=== PATIENT | female | born 1990 | race African-American/Black ===

== ENCOUNTER 2021-11-12 16:31 | Outpatient (REF) | payer OTHER, SELFPAY ==
--- NOTE | 2021-11-12 15:45 | PAPFT_PTH ---
PATIENT: Michael Hdz LOC: N U#:[id number] AGE/SX: 31/F ROOM: RE11/12/[address]: Sondra Mckinnon MD, DC : 1990 BED: DIS: 11/12/2021 SPEC #: [id number] RECD: 11/12/21 18:34 STATUS: PRETTY REQ #: [id number] DEAN: 11/12/21 15:[address]: Sondra Mckinnon DEPT: [facility] Cytology RECD BY: Diamond Pan Tissues: 1 - CX/ENDOCX FOR PAP SMEARS Procedures: PAP THIN PREP/UVM Screening Comments: [id number]
== END 2021-11-12 16:32 | disposition home or self-care (01) ==
LOC: LBN 16:31
PROVIDERS: PCP Family Medicine; Visit Provider Family Medicine
DX: Z12.4 Encounter for screening for malignant neoplasm of cervix (principal)
CPT/HCPCS: 88142

== ENCOUNTER 2022-07-29 01:55 | Outpatient (CLI) | payer OTHER, SELFPAY ==
[2022-07-29 16:26] LABS: Kit/Specimen SENT
[2022-07-29 16:35] LABS: Abs Immature Grans 0.03 10^3/uL (0.0-0.06); Absolute Basophil Count 0.02 10^3/uL (0.0-0.2); Absolute Eosinophil Count 0.09 10^3/uL (0.0-0.7); Absolute Lymphocyte Count 2.58 10^3/uL (1.2-3.4); Absolute Monocyte Count 0.71 10^3/uL (0.1-0.8); Absolute Neutrophil Count 5.35 10^3/uL (1.2-6.7); Basophils % 0.2; HCT 32.9 % (36.0-46.0); HGB 11.4 g/dL (11.2-15.7); Immature Grans % 0.3; Lymphocytes % 29.4; MCH 32.4 pg (27.0-33.0); MCHC 34.7 % (32.0-36.0); MCV 94 fL (80-95); MPV 9.6 fL (8.0-11.0); Monocytes % 8.1; Nucleated RBC 0.2 % (0.0-0.3); Platelet Count 263 10^3/uL (130-400); RBC 3.52 10^6/uL (3.93-5.22); RDW 11.7 % (11.7-14.6); RDW-SD 39.9 fL; WBC 8.78 10^3/uL (4.4-10.8)
[2022-07-29 19:55] LABS: Tricyclic Antidepressants Negative (Negative)
[2022-07-29 19:56] LABS: *AMPHETAMINES SCREEN URINE Negative (Negative); *BARBITURATES SCREEN URINE Negative (Negative); *BENZODIAZEPINES SCREEN URINE Negative (Negative); Cannabinoids THC Negative (Negative); Cocaine Screen,Urine Negative (Negative); METHADONE URINE SCREEN Negative (Negative); OPIATES URINE SCREEN Negative (Negative)
[2022-07-31 09:14] LABS: Hepatitis B Surface Ag Negative (Negative)
[2022-07-31 09:56] LABS: HIV-1/2 Ag & Ab Screen Negative (Negative)
[2022-07-31 10:11] LABS: Hepatitis C Ab w Rflx HCV PCR Negative (Negative)
[2022-07-31 10:18] LABS: Rubella IgG Ab (UVM) Positive (See Note)
[2022-07-31 12:20] LABS: Varicella IgG Antibody Equivocal (See Note)
[2022-07-31 15:16] LABS: Chlamydia Result Negative (Negative); GC Result Negative (Negative)
[2022-08-01 13:41] LABS: Syphilis IgG w/Reflex Nonreactive (Nonreactive)
[2022-08-05 10:32] LABS: Buprenorphine Negative ng/mL (Cutoff: 5.0); Norbuprenorphine Negative ng/mL (Cutoff: 2.5)
== END 2022-07-29 01:56 | disposition home or self-care (01) ==
LOC: LBO 01:55
PROVIDERS: PCP Family Medicine; Visit Provider Advanced Practice Midwife
DX: Z34.01 Encounter for supervision of normal first pregnancy, first trimester (principal); Z3A.00 Weeks of gestation of pregnancy not specified
CPT/HCPCS: 80307; 80348; 86787; 86803; 86850; 86900; 86901; 87340; 87389; 87491; 87591; 85025; 86762; 86780; 87086; 87480; 87510; 87660

== ENCOUNTER 2022-08-26 03:13 | Outpatient (CLI) | payer OTHER, SELFPAY ==
[2022-08-29 12:25] LABS: AFP 50.7 ng/mL; Calculated age at EDD 30 years; Cigarette smoking status non-Smoker; GA used in risk estimate Dates estimate; IVF Pregnancy No; Initial or repeat testing Initial testing; Insulin dependent diabetes No; Maternal Weight 136 lbs; Number of Fetuses 1; Physician Phone Number 802-748-7300; Prev Pregnancy w/NTD No; RECOMMENDED FOLLOW UP None.; Results Summary Normal risk
[2022-09-02 09:42] LABS: Specimen WB Whole Blood
[2022-09-29 13:42] LABS: Result Summary NEGATIVE; Specimen WB Whole Blood
== END 2022-08-26 03:14 | disposition home or self-care (01) ==
LOC: LBO 03:13
PROVIDERS: Obstetrics & Gynecology; PCP Family Medicine; Visit Provider Advanced Practice Midwife
DX: Z34.92 Encounter for supervision of normal pregnancy, unspecified, second trimester (principal); Z3A.00 Weeks of gestation of pregnancy not specified
CPT/HCPCS: 36415; 81220; 81222; 81329; 82105

== ENCOUNTER 2022-11-25 03:12 | Outpatient (CLI) | payer OTHER, SELFPAY ==
[2022-11-25 10:37] LABS: HCT 29.9 % (36.0-46.0); HGB 10.1 g/dL (11.2-15.7); MCHC 33.8 % (32.0-36.0); MCV 98 fL (80-95); MPV 9.1 fL (8.0-11.0); Platelet Count 291 10^3/uL (130-400); RBC 3.06 10^6/uL (3.93-5.22); RDW 12.5 % (11.7-14.6); RDW-SD 44.4 fL; WBC 11.31 10^3/uL (4.4-10.8)
[2022-11-25 10:50] LABS: Glucose,1 Hr (Glucola) 152 mg/dL (80-140)
== END 2022-11-25 03:13 | disposition home or self-care (01) ==
LOC: LBO 03:12
PROVIDERS: Advanced Practice Midwife; PCP Family Medicine; Visit Provider Advanced Practice Midwife
DX: Z34.93 Encounter for supervision of normal pregnancy, unspecified, third trimester (principal); Z3A.28 28 weeks gestation of pregnancy
CPT/HCPCS: 36415; 82950; 85027

== ENCOUNTER 2022-12-09 02:26 | Outpatient (CLI) | payer OTHER, SELFPAY ==
[2022-12-09 09:10] LABS: Glucose 1 Hour 176 mg/dL
[2022-12-09 11:10] LABS: Glucose 3 Hour 127 mg/dL
== END 2022-12-09 02:27 | disposition home or self-care (01) ==
LOC: LBO 02:27
PROVIDERS: Advanced Practice Midwife; PCP Family Medicine; Visit Provider Advanced Practice Midwife
DX: Z34.93 Encounter for supervision of normal pregnancy, unspecified, third trimester (principal)
CPT/HCPCS: 36415; 82951

== ENCOUNTER 2023-01-09 00:50 | Outpatient (CLI) | payer OTHER, SELFPAY ==
--- NOTE | 2023-01-09 06:45 | DI.US_ITS ---
Exam(s) US OB RICKY WEIGHT EXAM: US OB RICKY WEIGHT CLINICAL HISTORY: growth, position and fluid,Z34.90. TECHNIQUE: Transabdominal obstetrical ultrasound performed. COMPARISON: US US OB 2-3 TRIMESTER from 09/29/2022 FINDINGS: Number of fetuses: 1 position: CEPHALIC Placental location: There is a grade 2 posterior placenta. No evidence of previa. BIOMETRIC DATA: BPD: 9.01cm, 36weeks 3days HC: 32.68cm, 37weeks 1day AC: 32.83cm, 36weeks 5days FL: 7.06cm, 36weeks 1day EFW: 2,985.05g, 6lb 9.56oz, 90.2% Composite Age: 36weeks 4days JEFFERSON: 02/02/2023 Heart Rate: 134bpm Amniotic fluid index: 15.4cm. Visually, amount of fluid is within normal limits. IMPRESSION: 1. Single live intrauterine gestation as above. 2. Estimated weight is 2985gms. This is the 90th percentile. 3. Amniotic fluid index is 15.4 cm. Visually within normal limits. DATA REPOSITORY:
== END 2023-01-09 01:10 ==
LOC: DI 00:50
PROVIDERS: PCP Family Medicine; Visit Provider Advanced Practice Midwife
DX: Z34.93 Encounter for supervision of normal pregnancy, unspecified, third trimester (principal); Z3A.36 36 weeks gestation of pregnancy
CPT/HCPCS: 76816

== ENCOUNTER 2023-01-16 10:11 | Outpatient (REF) | payer OTHER, SELFPAY | END 2023-01-16 10:12 | disposition home or self-care (01) | LOC: LBN 10:11 | PROVIDERS: PCP Family Medicine; Visit Provider Advanced Practice Midwife | DX: Z34.93 Encounter for supervision of normal pregnancy, unspecified, third trimester (principal); Z36.85 Encounter for antenatal screening for Streptococcus B; Z3A.36 36 weeks gestation of pregnancy | CPT/HCPCS: 87081 ==

== ENCOUNTER 2023-02-10 01:20 | Inpatient (IN) | payer OTHER, SELFPAY ==
[2023-02-10] VITALS (60 sets, daily range): BP systolic 110–130; BP diastolic 8–92; PULSE 62–103; RESP 16–18; TEMP 36.5–36.9; O2SAT 97–99; BMI 29.8
[2023-02-10 01:47] LABS: HCT 40.3 % (36.0-46.0); HGB 13.7 g/dL (11.2-15.7); MCH 33.7 pg (27.0-33.0); MCV 99 fL (80-95); MPV 9.2 fL (8.0-11.0); Platelet Count 310 10^3/uL (130-400); RBC 4.06 10^6/uL (3.93-5.22); RDW-SD 44.3 fL; WBC 7.93 10^3/uL (4.4-10.8)
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
[2023-02-10 02:52] LABS: Source Nasal/Nares
[2023-02-10 03:23] LABS: COVID-19 PCR Negative (Negative)
[2023-02-10] MEDS: Lactated Ringers 500 ML IV ×2 (08:07→16:20)
--- NOTE | 2023-02-10 09:55 | PGE_ITS ---
Date of service: 02/10/23 Time of Service: 09:55 Pelvic Exam Dilation: 0.5 Effacement (%): 50 station: -3 Position: FOZIA Cervix Position: posterior Consistency: medium Vaginal Exam Presentation: Cephalic Comments: After attempt was made to stretch the cervix, the cervix was noted to be thicker than initally assessed to be at 50%. Contractions Monitor Mode: External Contraction Frequency(min): every 6-7 Contraction Duration(sec): 60 Intensity: Moderate Fetus A Monitor: External (US) Heart Rate Baseline: 140 Presentation: Vertex Variability: Minimal (1-5 BPM) Categories: Category I FHR Rhythm: Regular Accelerations: 15 X 15 Decelerations: None Amniotic Membrane Status: Intact Assessment Note: heart rate showed moderate variability at 0300. When she awoke from her sleep the variability was minimal and an IV bolus of 500 cc was administered. At 0800 Dr Hernandez was consulted regarding the heart rate pattern. Assessment and Plan Assessment and plan (1) Prolonged latent phase of labor: Status: Acute Assessment and plan: Bedside US and BPP performed by Dr. Hernandez for BPP 03/31. Per consult with Dr Emigdio platt, augmentation of labor recommended. Lawuo requested to take a shower and ambulate. Will start cervidil for cervical ripening and anticipate . Continuous monitoring with Novii. Objective Abnormal lab results 02/10/23 Range/Units 01:40 MCV 99 H (80-95) fL MCH 33.7 H (27.0-33.0) pg Temp Pulse Resp BP 98.4 F 86 18 117/79 02/10/23 07:33 02/10/23 07:33 02/10/23 07:33 02/10/23 07:33 Laboratory Results WBC 7.93 10^3/uL (4.4-10.8) 02/10/23 01:40 RBC 4.06 10^6/uL (3.93-5.22) 02/10/23 01:40 Hgb 13.7 g/dL (11.2-15.7) 02/10/23 01:40 Hct 40.3 % (36.0-46.0) 02/10/23 01:40 MCV 99 fL (80-95) H 02/10/23 01:40 MCH 33.7 pg (27.0-33.0) H 02/10/23 01:40 MCHC 34.0 % (32.0-36.0) 02/10/23 01:40 RDW 12.0 % (11.7-14.6) 02/10/23 01:40 Plt Count 310 10^3/uL (130-400) 02/10/23 01:40 MPV 9.2 fL (8.0-11.0) 02/10/23 01:40 COVID-19 Source Nasal/Nares 02/10/23 02:40 SARS-CoV-2 (PCR) Negative (Negative) 02/10/23 02:40 Patient ABO/Rh A Positive 02/10/23 01:40 Antibody Screen NEGATIVE 02/10/23 01:40 Subjective Interval history since last seen: Michael's contractions slowed and she fell asleep for 3-4 hours. She awoke and continues to have contractions every 7 minutes which are moderate strength. Results Hemoglobin/Hematocrit: Hgb 13.7 g/dL (11.2-15.7) 02/10/23 01:40 Hct 40.3 % (36.0-46.0) 02/10/23 01:40 Abnormal Lab Findings: Abnormal Labs 02/10/23 01:40 MCV 99 H MCH 33.7 H
--- NOTE | 2023-02-10 10:40 | W.PM.OBNL1 ---
Date of service: 02/10/23 Time of Service: 10:41 Contractions Monitor Mode: External Contraction Frequency(min): every 2- 6 minutes Contraction Duration(sec): 50-60 Intensity: Moderate Fetus A Monitor: External (US) Heart Rate Baseline: 135 Presentation: Cephalic Variability: Moderate (6-25 BPM) Categories: Category I Accelerations: 15 X 15 Decelerations: None Assessment Note: The novii was placed and there was a period of minimal variability. The baby was moving and the heart rate is now 135 with average variability. Assessment and Plan Assessment and plan (1) Prolonged latent phase of labor: Status: Acute Assessment and plan: Cervidil was held and at this time, will plan to administer low dose pitocin per protocol. Ambulation was encouraged for comfort. Anticipate . Objective Abnormal lab results 02/10/23 Range/Units 01:40 MCV 99 H (80-95) fL MCH 33.7 H (27.0-33.0) pg Temp Pulse Resp BP 98.4 F 83 18 125/89 02/10/23 07:33 02/10/23 10:17 02/10/23 07:33 02/10/23 10:17 Laboratory Results WBC 7.93 10^3/uL (4.4-10.8) 02/10/23 01:40 RBC 4.06 10^6/uL (3.93-5.22) 02/10/23 01:40 Hgb 13.7 g/dL (11.2-15.7) 02/10/23 01:40 Hct 40.3 % (36.0-46.0) 02/10/23 01:40 MCV 99 fL (80-95) H 02/10/23 01:40 MCH 33.7 pg (27.0-33.0) H 02/10/23 01:40 MCHC 34.0 % (32.0-36.0) 02/10/23 01:40 RDW 12.0 % (11.7-14.6) 02/10/23 01:40 Plt Count 310 10^3/uL (130-400) 02/10/23 01:40 MPV 9.2 fL (8.0-11.0) 02/10/23 01:40 COVID-19 Source Nasal/Nares 02/10/23 02:40 SARS-CoV-2 (PCR) Negative (Negative) 02/10/23 02:40 Patient ABO/Rh A Positive 02/10/23 01:40 Antibody Screen NEGATIVE 02/10/23 01:40 Subjective Interval history since last seen: Contractions increased in frequency after shower and cervical exam. Lawuo reported that they are getting stronger. Results Hemoglobin/Hematocrit: Hgb 13.7 g/dL (11.2-15.7) 02/10/23 01:40 Hct 40.3 % (36.0-46.0) 02/10/23 01:40 Abnormal Lab Findings: Abnormal Labs 02/10/23 01:40 MCV 99 H MCH 33.7 H
[2023-02-10] MEDS: Lactated Ringers 1,000 ML 125 ML IV (10:55)
[2023-02-10] MEDS: Oxytocin/Normal Saline 30 UNIT/500 ML BAG 2 UNITS IV (10:56)
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
--- NOTE | 2023-02-10 15:21 | W.PM.OBNL1 ---
Date of service: 02/10/23 Time of Service: 15:46 Informed Consent Informed Consent: Augmentation of Labor and Regional Anesthesia Pelvic Exam Comments: 2 cms/80% and -2 at 1400. Exam deferred until after epidural. Contractions Monitor Mode: External Contraction Frequency(min): every 2-4 min Contraction Duration(sec): 60 Intensity: Strong Fetus A Monitor: External (US) Heart Rate Baseline: 130 Presentation: Vertex Variability: Moderate (6-25 BPM) Categories: Category I Accelerations: 15 X 15 Decelerations: None Assessment Note: occasional periods of minimal variability Assessment and Plan Assessment and plan (1) Prolonged latent phase of labor: Status: Acute Assessment and plan: will continue pitocin augmentation and reassess for labor progress after epidural. Dr gilbert visited [facility] while she wa sin the tub Objective Abnormal lab results 02/10/23 Range/Units 01:40 MCV 99 H (80-95) fL MCH 33.7 H (27.0-33.0) pg Temp Pulse Resp BP 97.9 F 83 18 128/71 02/10/23 12:26 02/10/23 14:10 02/10/23 07:33 02/10/23 12:25 Laboratory Results WBC 7.93 10^3/uL (4.4-10.8) 02/10/23 01:40 RBC 4.06 10^6/uL (3.93-5.22) 02/10/23 01:40 Hgb 13.7 g/dL (11.2-15.7) 02/10/23 01:40 Hct 40.3 % (36.0-46.0) 02/10/23 01:40 MCV 99 fL (80-95) H 02/10/23 01:40 MCH 33.7 pg (27.0-33.0) H 02/10/23 01:40 MCHC 34.0 % (32.0-36.0) 02/10/23 01:40 RDW 12.0 % (11.7-14.6) 02/10/23 01:40 Plt Count 310 10^3/uL (130-400) 02/10/23 01:40 MPV 9.2 fL (8.0-11.0) 02/10/23 01:40 COVID-19 Source Nasal/Nares 02/10/23 02:40 SARS-CoV-2 (PCR) Negative (Negative) 02/10/23 02:40 Patient ABO/Rh A Positive 02/10/23 01:40 Antibody Screen NEGATIVE 02/10/23 01:40 Subjective Interval history since last seen: Michael has used the tub and nitrous oxide for pain. She complains of fatigue and pain and requests an epidural. Justin London CRNA is present to perform the procedure. Michael is coping well with the labor with the support of her partner Saravanan and jovana Armstrong. Pitocin is infusing at 8 mu/min. Results Hemoglobin/Hematocrit: Hgb 13.7 g/dL (11.2-15.7) 02/10/23 01:40 Hct 40.3 % (36.0-46.0) 02/10/23 01:40 Abnormal Lab Findings: Abnormal Labs 02/10/23 01:40 MCV 99 H MCH 33.7 H
[2023-02-10] MEDS: FentaNYL/ROPIvacaine 2 mcg/ml and 0.1% 200 ML CADD Cassette EP (16:00)
--- NOTE | 2023-02-10 16:13 | W.ANESNEU ---
Epidural/Spinal Catheter Date Performed: 02/10/23 Procedure Start: 15:45 Procedure Stop: 16:14 Requesting Provider: Carine Kang Procedure Location: Obstetrics Reason Performed: Labor Epidural Standard Monitors Applied: Blood Pressure, SpO2 and See EMR for corresponding vital signs Patient Position: Sitting Sedation Given (Indicate Dose Given): No Sedation given Patient Mental Status: Awake Sterility: Hand Hygiene, Surgical Cap, Surgical Mask, Sterile Gloves, Sterile Drape/Sheet and Chlorhexidine Procedure Location: L3-L4 Interspace Epidural Needle: Tuohy 18 Gauge Needle Length: 3.5 Inch Needle Approach: Midline Epidural Procedure: Skin Prepped, Sterile Drape Placed, 1% Lidocaine to skin and subcutaneous tissue with 25G needle, Tuohy Needle placed, SANTHOSH to Saline Used, Epidural Catheter Placed, Negative Heme, Negative CSF Flow and Tuohy Needle Removed Catheter Placed?: Catheter Placed Test Dose (Indicate Dose Given): 3ml 1.5% Lidocaine with 1:200K Epinephrine Given and Negative Test Dose Loss of Resistance Depth (cm): 4 Catheter depth at skin (cm): 11 Dressing: Sorbaview Dressing Placed, Mastisol Used and Dressing reinforced with Tape Epidural Provider Bolus (Indicate Dose Given): Total bolus dose given in 3-5 ml divided doses and Total Ropivacaine 0.1% with Fentanyl 2mcg/ml Given from pump. (ml) Dose:: 10ml Additives (Indicate Dose Given ): None Infusion Medication: Medication Infusion Began Medication Infusion: Ropivacaine 0.1% with Fentanyl 2mcg/ml Maintenance Infusion Rate (ml/hour): 10 PCEA Bolus Dose (ml): 5 Block Level: N/A Paresthesia: None Ultrasound: Not Used Number of Attempts (See previous attempts in note section): 1 Procedure Tolerated: No Complications and Patient tolerated well Procedure Outcome: Successful Procedure Comment:: SANTHOSH to saline was not impressive, catheter threaded without difficulty. Negative test dose, responded well with comfort to bolus, good motor . Catheter secured and PCEA education given. Performed By: Justin London
--- NOTE | 2023-02-10 16:25 | W.ANESPRE ---
General Info Date of Service Date Performed: 02/10/23 Height: 5 ft 1 in Weight: 71.668 kg Body Mass Index (BMI): 29.8 Meds Allergies and Home Medications Allergies Allergy/AdvReac Type Severity Reaction Status Date / Time No Known Allergies Allergy Unverified 02/10/23 01:46 Home Medication Medication Instructions Recorded vitamins no.119-iron 1 tab PO 07/07/22 fumarate 29 mg-folic acid 1 mg tablet cholecalciferol (vitamin D3) 25 25 mcg PO DAILY 08/26/22 mcg (1,000 unit) capsule ascorbic acid (vitamin C) 1,000 mg 1 g PO DAILY 09/29/22 capsule aspirin 81 mg tablet,delayed 81 mg PO DAILY #90 tabs 11/04/22 release (Adult Low Dose Aspirin) calcium carbonate 200 mg calcium 200 mg PO BID PRN 11/25/22 (500 mg) chewable tablet (Tums) ferrous sulfate 325 mg (65 mg 325 mg PO DAILY #30 tabs 11/25/22 iron) tablet (Feosol) Current Visit Medications: Current Medications Generic Name Dose Route Start Last Admin Trade Name Freq PRN Reason Stop Dose Admin Fentanyl/Ropivacaine 200 ml 02/10/23 15:30 02/10/23 16:00 Fentanyl/Ropivacaine 2 Mcg/Ml And 0.1% 200 Ml Cadd Cassette EP 200 ml DIRECTED CONOR Administration Ringer's Solution 1,000 mls @ 200 mls/hr 02/10/23 09:45 IV INFUSION CONOR Ringer's Solution 1,000 mls @ 125 mls/hr 02/10/23 10:45 02/10/23 10:55 IV 125 mls/hr INFUSION CONOR Administration Sodium Chloride 500 mls @ 0 mls/hr 02/10/23 10:37 Saline 500ml Bag IV PRN PRN As Directed Oxytocin/Sodium Chloride 30 unit in 500 mls @ 2 mls/hr 02/10/23 10:45 02/10/23 16:13 Pitocin/Normal Saline IV 0 milliunits/min INFUSION CONOR 0 mls/hr Titration Protocol 2 MILLIUNITS/MIN IV Miscellaneous Supplies 1 each 02/10/23 10:45 Iv Access IV DIRECTED CONOR Sodium Chloride 0 ml 02/10/23 10:37 Normal Saline Flush 10 Ml Syr IVP PRN PRN Terbutaline Sulfate 0.25 mg 02/10/23 09:40 Terbutaline 1 Mg/Ml Vial SC PRN PRN Zolpidem Tartrate 10 mg 02/10/23 21:00 Zolpidem 5 Mg Tab PO 02/11/23 06:00 2100 CONOR PFSH Active Problems Active Problems: Problem Status Onset Code Prolonged latent phase of labor O63.0 Spontaneous onset of labor Susceptible to varicella (non-immune), currently O09.899, Z28.39 Z34.90 Medical History Medical History (Updated 02/10/23 @ 09:56 by Carine Fontaine CNM) Bartholin's gland abscess Procreative management counseling Tobacco Smoking/Tobacco Use Status: Never Passive smoking exposure: Yes Second hand exposure: Yes Alcohol Alcohol Intake: current Alcohol intake frequency: holidays/special occasions only Alcohol type: wine and hard liquor Substance Use Substance use: Never Substance use type: does not use Prental History History 1 Para 0 Hx # Term Pregnancies 0 Multiple births 0 Hx # Pregnancies 0 Ectopic pregnancies 0 AB induced 0 Hx Number of Living Children 0 AB spontaneous 0 Vital Signs and Lab Results Vital Signs Most Recent Vital Signs in EMR: Most Recent Vital Signs Temp Pulse Resp BP 36.6 C 83 18 128/71 02/10/23 12:26 02/10/23 14:10 02/10/23 07:33 02/10/23 12:25 Lab Results 02/10/23 01:40 Blood Type / Crossmatch: Patient ABO/Rh A Positive 02/10/23 Antibody Screen NEGATIVE 02/10/23 Complete Blood Count: White Blood Count 7.93 10^3/uL (4.4-10.8) 02/10/23 01:40 Red Blood Count 4.06 10^6/uL (3.93-5.22) 02/10/23 01:40 Hemoglobin 13.7 g/dL (11.2-15.7) 02/10/23 01:40 Hematocrit 40.3 % (36.0-46.0) 02/10/23 01:40 Platelet Count 310 10^3/uL (130-400) 02/10/23 01:40 Complete Metabolic Panel: No Data to Display Liver Function Panel: No Data to Display Coagulation Panel: No Data to Display Cardiac Panel: No Data to Display Arterial Blood Gas: No Data to Display Venous Blood Gas: No Data to Display Pancreas Panel: No Data to Display Thyroid Panel: No Data to Display Infectious Disease: Coronavirus (COVID-19)(PCR) Negative (Negative) 02/10/23 02:40 Coronavirus 2019 Source Nasal/Nares 02/10/23 02:40 Blood Cultures: No Data to Display Toxicology Panel: No Data to Display Panel: No Data to Display Anesthesia Assessment and Plan Anesthesia History Personal History: No History of General Anesthesia Family History: No Family History of Anesthesia Complications Exercise Tolerance Exercise Tolerance: Metabolic Equivalents>4 Cardiac & Pulmonary Exam Cardiac Exam: Normal S1/S2 Heart Sounds Pulmonary Exam: Clear Bilateral Breath Sounds Implantable Cardiac Device Does patient have a Pacemaker or an ICD?: No Airway Exam Known Difficult Airway: No Mallampati Class: 1 Mouth Opening: Normal (> 3cm) Thyromental Distance: Greater than 3 cm Neck Range of Motion: Full ROM Neck Circumference: Normal Teeth Condition: Normal Dentition ASA Classification ASA Score: ASA 1 Emergency Case?: No NPO Status NPO Status: Full Stomach Status Status: Confirmed Anesthesia Plan Resuscitation Status: Full Code Anesthesia Technique: Labor Epidural Airway Planned: Natural Airway Monitors Used: Standard Monitors
--- NOTE | 2023-02-10 16:53 | W.PM.OBPNV1 ---
Date of service: 02/10/23 Time of Service: 16:53 Assessment and Plan Assessment and plan (1) Arrested labor: Status: Acute Assessment and plan: Labor arrest at 3 cm with failure to descend into the pelvis. intolerance of labor with strong regular contractions. We will proceed for primary section. Risk benefits and alternatives discussed. Informed consent was obtained. (2) intolerance to labor, delivered, current hospitalization: Status: Acute Subjective Subjective Interval history: Patient had a significant prolonged bradycardic episode. This was in response to hyperstimulation, tachysystole. When Pitocin was discontinued, heart tones returned to the 150s with moderate variability. Cervical exam per security guards dispatcher is unchanged at 3 cm and significant caput. Discussed with patient, and family risk benefits and alternatives of operative delivery via section. Full informed consent was obtained. All questions were answered. Exam Physical Exam Vital signs: Temp Pulse Resp BP 97.9 F 83 18 128/71 02/10/23 12:26 02/10/23 14:10 02/10/23 07:33 02/10/23 12:25 Vital Signs Reviewed: Yes Results Hemoglobin/Hematocrit: Hgb 13.7 g/dL (11.2-15.7) 02/10/23 01:40 Hct 40.3 % (36.0-46.0) 02/10/23 01:40 Abnormal Lab Findings: Abnormal Labs 02/10/23 01:40 MCV 99 H MCH 33.7 H
[2023-02-10] MEDS: AZITHROMYCIN 500 MG in Normal Saline 250 ML 250 MG IVPB (17:14)
[2023-02-10] MEDS: Sodium Citrate 30 ML CUP PO (17:14)
[2023-02-10] MEDS: ceFAZolin 2 GM/50 ML BAG IVPB (17:27)
[2023-02-10] MEDS: Lactated Ringers 1,000 ML 200 ML IV (17:27)
--- NOTE | 2023-02-10 19:06 | W.ANESPOSTOP ---
Postoperative Evaluation Date, Time and Location Date Performed: 02/10/23 Time Performed: 19:06 Patient Location: Obstetrics Vital Signs Most Recent Imported Vital Signs: Most Recent Vital Signs Temp Pulse Resp BP 36.6 C 83 18 128/71 02/10/23 12:26 02/10/23 14:10 02/10/23 07:33 02/10/23 12:25 Assessment Mental Status: Awake (Alert & Oriented to Patient Baseline) Airway and Respiratory Function: Patent airway with normal (patient baseline) respiratory exam Cardiovascular Function: Hemodynamically Stable Hydration Status: Adequately Hydrated Nausea & Vomiting: No Nausea or Vomiting Pain: Pt. Denies Any Pain Peripheral Nerve Block: Patient did not receive a nerve block Postoperative Comments:: To OB, VSS, questions answered. Discussed itching and nausea associated with IT opioid. Spinal in effect still.
--- NOTE | 2023-02-10 19:21 | PDOC.OPNB_ITS ---
Date of service: 02/10/23 Time of Service: 19:21 Operative Note Operative Note Delivery Method: Unscheduled STAT: No DATE OF PROCEDURE: 02/10/23 PRE-OP DIAGNOSES: Labor arrest, intolerance of labor POST-OP DIAGNOSES: same Persistent occiput posterior, deflexed vertex, narrow pelvic inlet PROCEDURE: Primary low transverse section SURGEON: Beth Hernandez Cafeteria Or Lunchroom Checker: Sydney Sapp Cafeteria Or Lunchroom Checker: Jonathan Gandara Anesthesia: spinal Estimated blood loss (mL): 500 Pathology: none sent Complications: None Patient was transported to: floor Patient's condition: stable Indications: Arrest of labor. intolerance of labor with prolonged bradycardia Findings: Normal-appearing tubes and ovaries. Multiple small fibroids, subserosal at the posterior surface, 1 3 cm anterior left lateral uterine fibroid. Delivery of a viable female from the occiput posterior position with a markedly deflexed vertex. Narrow pelvic inlet. Note: Patient is not a good candidate for subsequent trial of labor. Procedure Description: Due to arrest of labor, and prolonged episode of bradycardia when actively marilee, decision was made for primary section. Patient had previously received an epidural for pain control. She had been augmented with Pitocin and had intolerance of labor. With discontinuation of Pitocin, heart rate tracing was category 1 with moderate variability. In light of inability for the fetus to tolerate labor, and difficulty in descent of the vertex into the pelvis, remote from delivery, the decision was made to proceed to section. Risk benefits and alternatives of section were explained to the patient in full informed consent had been obtained. She was taken to the operating suite with an IV running where her previous epidural catheter was removed and spinal anesthesia administered. She was then placed in the dorsal supine position with leftward tilt. heart tones were 136 after spinal placement. Beltran catheter had been previously inserted for continuous bladder drainage. Pneumatic compression stockings were placed for DVT prophylaxis. Vaginal preparation was performed. Exam revealed a Cervix That Was Approximately 3 Cm Dilated with the Vertex at the -3 Position and Marked noted. The patient was then prepped and draped in the usual sterile fashion and a Pfannenstiel skin incision was made and carried down to the underlying fascia. The fascia was then nicked in the midline and fascial incision extended laterally. The rectus muscles were identified split in the midline and the peritoneum identified tented up and entered sharply. The peritoneal incision was then extended superiorly and inferiorly and the bladder blade was inserted. The vesicouterine peritoneum was identified tented up and entered sharply and the bladder blade reinserted. A low transverse uterine incision was made with a scalpel and extended bluntly laterally. The vertex was in the direct occiput posterior position. I then manually elevated the extended vertex out of the pelvis to allow delivery of the vertex through the incision. There was no evidence of nuchal cord. Shoulders followed with ease. Three-vessel cord was noted clamped x2 and cut and the infant was handed off to the waiting river driver. At this point a segment was saved for cord gases, however they were not needed as Apgars were 7 and 9. Cord blood sample was obtained and the placenta was manually expressed from the uterus. At this point the uterus was exteriorized and cleared of all clot and debris. There was noted to be multiple small fibroids on the posterior subserosal area of the uterus, and a 3 cm pedunculated fibroid at the left lateral fundal region of the uterus. The uterine incision was closed using 0 Monocryl suture in a 2 layer closure, first being running locked, second being imbricating. At this point the incision was then reinspect ed and noted to be hemostatic. The uterus was then returned to the abdomen abdomen irrigated with copious amounts of normal saline. The uterine incision was again inspected and found to be hemostatic. The fascial incision was then closed using 0 Vicryl suture in a running fashion. Subcutaneous tissue irrigated with copious amounts of normal saline. Subcu space reapproximated with 3-0 Vicryl suture and the skin edge reapproximated with 4-0 undyed Monocryl in a subcuticular fashion. Mepilex dressing was placed over the incision. Uterus was noted to be firm and 1 cm below the umbilicus. The patient was then returned to the center with a Beltran catheter in place draining clear yellow urine with stable vital signs. Findings: 1. Delivered viable female with Apgars of 7 and 9 from the occiput posterior position with hyperextended vertex. 2. Normal tubes and ovaries 3. Normal uterus with multiple small uterine fibroids Complications: None apparent Fluids: Crystalloid per anesthesia EBL: 500 mL Pathology: None sent Note: Due to significantly narrow pelvic inlet patient may not be a good candidate for trial of labor after section.
[2023-02-11] MEDS: Ketorolac 30 MG/ML VIAL 15 MG IVP ×3 (00:42→12:29)
[2023-02-11 01:02] VITALS: BP 117/67; PULSE 69; TEMP 36.8
[2023-02-11 03:10] VITALS: BP 115/72; PULSE 76; RESP 16; TEMP 36.4
[2023-02-11] MEDS: Normal Saline Flush 10 ML SYR IVP ×2 (06:38→12:28)
[2023-02-11 07:16] LABS: Abs Immature Grans 0.07 10^3/uL (0.0-0.06); Absolute Basophil Count 0.03 10^3/uL (0.0-0.2); Absolute Neutrophil Count 12.33 10^3/uL (1.2-6.7); Basophils % 0.2; Eosinophils % 0.1; HCT 32.1 % (36.0-46.0); Immature Grans % 0.4; Lymphocytes % 13.1; MCH 33.2 pg (27.0-33.0); MCHC 34.3 % (32.0-36.0); MCV 97 fL (80-95); MPV 9.6 fL (8.0-11.0); Neutrophils % 75.2; Platelet Count 274 10^3/uL (130-400); RBC 3.31 10^6/uL (3.93-5.22); RDW 11.8 % (11.7-14.6); RDW-SD 41.6 fL; WBC 16.39 10^3/uL (4.4-10.8)
[2023-02-11 07:29] LABS: Absolute Eosinophil Count 0.02 10^3/uL (0.0-0.7); Absolute Lymphocyte Count 2.15 10^3/uL (1.2-3.4)
[2023-02-11 07:43] LABS: Diff Comment Diff Reviewed; RBC Morphology Normal
--- NOTE | 2023-02-11 08:07 | W.PM.OBPNV1 ---
Date of service: 02/11/23 Time of Service: 08:07 Assessment and Plan Assessment and plan (1) Status post primary low transverse section: Status: Acute Assessment and plan: Postoperative day 1 status post primary low-transverse section for arrest of labor, and intolerance of labor. Doing well. Ambulatory. Pain well controlled. All questions answered. Routine postoperative care. Subjective Subjective Interval history: Patient seen and examined this morning. Doing very very well. She is up, ambulatory, voiding without difficulty. Beltran catheter is out. Vital signs are stable. Hemoglobin this morning stable at 11.0. Breast-feeding without difficulty. Pain is well controlled. baby status: Nursing well and Strong Bonding Observed Exam Physical Exam Vital signs: Temp Pulse Resp BP Pulse Ox 97.5 F L 76 16 115/72 97 02/11/23 03:10 02/11/23 03:10 02/11/23 03:10 02/11/23 03:10 02/10/23 19:00 Vital Signs Reviewed: Yes Constitutional Constitutional: no acute distress HEENT Exam HEENT Exam: Normal Neck Exam Neck Exam: Normal Respiratory Exam Respiratory Exam: Normal Abdominal Exam Abdomen: Tender Comments: Incision dressed with Mepilex Fundal Exam Fundus: Below Umbilicus and Firm Extremities Exam Extremity Exam: Normal; negative Calf Tenderness or Edema Neurological Exam Neurological Exam: Normal Psychiatric Exam Psychiatric Exam: Normal Results Hemoglobin/Hematocrit: Hgb 11.0 g/dL (11.2-15.7) L D 02/11/23 06:50 Hct 32.1 % (36.0-46.0) L 02/11/23 06:50 Abnormal Lab Findings: Abnormal Labs 02/10/23 02/11/23 01:40 06:50 WBC 16.39 H RBC 3.31 L Hgb 11.0 L D Hct 32.1 L MCV 99 H 97 H MCH 33.7 H 33.2 H Absolute Neutrophils 12.33 H Absolute Monocytes 1.80 H
[2023-02-11 08:20] VITALS: BP 109/72; PULSE 85; RESP 16; TEMP 36.7; O2SAT 96
[2023-02-11 12:30] VITALS: BP 121/71; PULSE 83; RESP 16; TEMP 36.6; O2SAT 99
[2023-02-11] MEDS: Acetaminophen 325 MG TAB 650 MG PO ×2 (16:59→22:45)
[2023-02-11 22:00] VITALS: BP 119/71; PULSE 82; RESP 18; TEMP 36.9
[2023-02-12] MEDS: Ibuprofen 600 MG TAB PO ×2 (00:51→12:17)
[2023-02-12 08:00] VITALS: BP 110/70; PULSE 91; TEMP 36.6; O2SAT 99
[2023-02-12] MEDS: Docusate Sodium 100 MG CAP PO (08:01)
--- NOTE | 2023-02-12 08:09 | W.PM.OBPNV1 ---
Date of service: 02/12/23 Time of Service: 08:10 Assessment and Plan Assessment and plan (1) Status post primary low transverse section: Status: Acute Assessment and plan: Postop day 2 from pLTCS. Satisfactory breast-feeding. Plan is to administer Percocet for the patient this morning and see if her pain improves will consider discharged home later today if pediatrics agrees. Subjective Subjective Patient comments: Incisional pain and Tolerating diet [place] baby status: Doing well and Nursing well feeding status: Exclusively breast feeding Exam Physical Exam Vital signs: Temp Pulse Resp BP Pulse Ox 98.4 F 82 18 119/71 99 02/11/23 22:00 02/11/23 22:00 02/11/23 22:00 02/11/23 22:00 02/11/23 12:30 Vital Signs Reviewed: Yes Narrative: POD 2 pLTCS successfully. Pt reports some increased incsional discomfort with getting in and out of bed. Constitutional Constitutional: no acute distress HEENT Exam HEENT Exam: Not Done Neck Exam Neck Exam: Normal Respiratory Exam Respiratory Exam: Normal Cardiovascular Exam Cardiovascular Exam: Normal Abdominal Exam Abdomen: Tender Comments: dressing remains in place Fundal Exam Fundus: Below Umbilicus Rectal Exam Rectal Exam: Not Done Extremities Exam Extremity Exam: Normal Back/Spine/Pelvis Exam Back Exam: Normal Skin Exam Skin Exam: Normal Neurological Exam Neurological Exam: Normal Psychiatric Exam Psychiatric Exam: Normal Results Hemoglobin/Hematocrit: Hgb 11.0 g/dL (11.2-15.7) L D 02/11/23 06:50 Hct 32.1 % (36.0-46.0) L 02/11/23 06:50 Abnormal Lab Findings: Abnormal Labs 02/10/23 02/11/23 01:40 06:50 WBC 16.39 H RBC 3.31 L Hgb 11.0 L D Hct 32.1 L MCV 99 H 97 H MCH 33.7 H 33.2 H Absolute Neutrophils 12.33 H Absolute Monocytes 1.80 H
[2023-02-12] MEDS: oxyCODONE 5 mg/Acetaminophen 325 mg TAB PO (08:13)
[2023-02-12 12:00] VITALS: BP 121/80; PULSE 99; TEMP 37; O2SAT 99
[2023-02-12] MEDS: Acetaminophen 325 MG TAB 650 MG PO ×2 (12:17→16:41)
[2023-02-12] MEDS: Varicella Virus Vaccine (Live) 0.5 ML SC (14:56)
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
== END 2023-02-12 17:15 | disposition home or self-care (01) | DRG 788 ==
PROVIDERS: Obstetrics & Gynecology; Admitting Provider Advanced Practice Midwife; PCP Family Medicine; Visit Provider Advanced Practice Midwife
PROC: 10D00Z1 Extraction of Products of Conception, Low, Open Approach (ICD-10-PCS; CPT 59514; principal; 2023-02-10 17:20)
DX: Z3A.39 39 weeks gestation of pregnancy; Z37.0 Single live birth; O99.02 Anemia complicating childbirth; O34.13 Maternal care for benign tumor of corpus uteri, third trimester; D25.2 Subserosal leiomyoma of uterus; O63.0 Prolonged first stage (of labor); O62.1 Secondary uterine inertia; O76 Abnormality in fetal heart rate and rhythm complicating labor and delivery
CPT/HCPCS: 59514; 36415; 85027; 86850; 86900; 86901; 87635; 90471; 85025; J0131; J0456; J0690; J1100; J1885; J2370; J2405; J3010

== ENCOUNTER 2024-02-29 05:19 | Outpatient (CLI) | payer OTHER, SELFPAY | END 2024-02-29 05:20 | disposition home or self-care (01) | LOC: LOS 05:19 | PROVIDERS: PCP Family Medicine; Visit Provider Family Medicine | DX: Z77.011 Contact with and (suspected) exposure to lead (principal) | CPT/HCPCS: 36415; 83655 ==

== ENCOUNTER 2024-06-01 04:07 | Outpatient (CLI) | payer OTHER, SELFPAY | END 2024-06-01 04:08 | disposition home or self-care (01) | LOC: LBO 04:08 | PROVIDERS: PCP Family Medicine; Visit Provider Family Medicine | DX: Z77.011 Contact with and (suspected) exposure to lead (principal) | CPT/HCPCS: 36415; 83655 ==

== ENCOUNTER 2025-03-10 01:37 | Outpatient (CLI) | payer OTHER, SELFPAY ==
[2025-03-13 11:24] LABS: Hep B Surface Ab Positive (See Note); Hepatitis B Core Antibody Negative (Negative); Hepatitis B Surface Antigen Negative (Negative)
== END 2025-03-10 01:38 | disposition home or self-care (01) ==
PROVIDERS: PCP Family Medicine; Visit Provider Family Medicine
DX: Z20.5 Contact with and (suspected) exposure to viral hepatitis (principal)
CPT/HCPCS: 36415; 86704; 86706; 87340